=== PATIENT | female | born 1990 | race Hispanic/Latino ===

== ENCOUNTER → 2016-10-12 | Outpatient (CLI) | payer OTHER ==
[~2016-10-12] MED LIST: CEPH500C PO; CLON2TAB PO
--- NOTE | 2016-10-12 15:18 | Diagnostic Imaging Report ---
OB ultrasound. INDICATION: survey, followup for spine. FINDINGS: heart rate is 127 beats per minute. The placenta is posterior and extends to the lower uterine segments at 1.3 cm from the internal os. The cervix is long and closed. spine appears unremarkable. IMPRESSION: The spine appears unremarkable. Low-lying placenta. Followup ultrasound in 6-8 weeks is recommended to followup the placental position. Dictated by: Dictated on workstation # [id number]
== END ==
LOC: RAD 10:01
PROVIDERS: ATTEND Obstetrics & Gynecology
DX: Z36 Encounter for antenatal screening of mother (principal)
CPT/HCPCS: 76816

== ENCOUNTER → 2016-12-07 | Outpatient (CLI) | payer SELFPAY ==
--- NOTE | 2016-12-07 13:33 | Diagnostic Imaging Report ---
OB ultrasound. INDICATION: Followup placenta. FINDINGS: heart rate is 134 beats per minute. The placenta is posterior. On transabdominal views, the placenta appears to be closed to the lower uterine segment. This is clarified with careful transvaginal examination which demonstrated closed cervix of 5.2 CM in length. The head is seen within the internal os and no placental tissue is seen within 2 cm of the internal os. Amniotic fluid index is 9.1 CM. IMPRESSION: No placenta previa. Dictated by: Dictated on workstation # [id number]
== END ==
LOC: RAD 09:37
PROVIDERS: ATTEND Obstetrics & Gynecology
DX: O44.43 Low lying placenta NOS or without hemorrhage, third trimester (principal)
CPT/HCPCS: 76815

== ENCOUNTER 2017-01-21 01:36 | Outpatient (CLI) | payer OTHER ==
[~2017-01-21] VITALS: Ht 152.4 cm; Wt 65.9 kg
[2017-01-21 02:00] VITALS: BP 128/82
[2017-01-21 02:05] LABS: BILIRUBIN,URINE NEGATIVE (NEGATIVE); KETONES,URINE 1+ (NEGATIVE); LEUKOCYTE ESTERASE ,URINE NEGATIVE (NEGATIVE); NITRITE,URINE NEGATIVE (NEGATIVE); PH,URINE 6 (5-9); PROTEIN,URINE 1+ (NEGATIVE); UROBILINOGEN,URINE NORMAL (NORMAL)
[2017-01-21] MEDS ORDERED: PREN-37 PO (02:08)
--- NOTE | 2017-01-23 12:10 | Physician Query-Final Dx ---
ROEL MARIE 01/23/17 1210: Clinic Account Progress/Dx Physician Query: Please give diagnosis Date of Service Jan 21, 2017 at 01:36 ANKITA MURDOKC DO 01/23/17 1231: Clinic Account Progress/Dx DIAGNOSIS: Diagnosis 38 week IUP Decreased movement ROEL AMRIE Jan 23, 2017 12:10 ANKITA MURDOCK DO Jan 23, 2017 12:31
[2017-01-26] MEDS ORDERED: IBUP-1773 PO (07:38)
[2017-01-26] MEDS ORDERED: DOCU-143 PO (07:38)
== END 2017-01-21 02:45 | disposition home or self-care (01) ==
LOC: WSo 01:36 → LDRP 01:37 → WSo 02:45
PROVIDERS: ATTEND Obstetrics & Gynecology
DX: O36.8130 Decreased fetal movements, third trimester, not applicable or unspecified (principal); Z3A.38 38 weeks gestation of pregnancy
CPT/HCPCS: 81000; 99213

== ENCOUNTER 2017-01-26 03:51 | Inpatient (IN) | payer OTHER ==
[~2017-01-26] VITALS: Ht 152.4 cm; Wt 67.6 kg
[2017-01-26] VITALS (14 sets, daily range): BP systolic 100–169; BP diastolic 58–94
[~2017-01-26 03:51] MED LIST changes: +PREN-37 PO
[2017-01-26] MEDS ORDERED: D5 LR IV SOLUTION 1,000 ML IV ONE (04:24)
--- NOTE | 2017-01-26 04:43 | History & Physical-OB ---
OB - Chief Complaint & HPI Date/Time Date of Admission: Date of Admission: Time Seen by Provider: 06:45 Chief Complaint/History OB-Reason for Admission/Chief: Onset of Labor Hx : 3 Hx Para: 1 Expected Date of Delivery: Feb 02, 2017 Gestational Age in Weeks: 39 Gestational Age in Days: 0 Other reason for admission: 26 y/o @ 39w0d who presented at 0400 for contractions Was 3cm in clinic on my check yesterday No LOF, VB, fetus still active Does not want epidural Previously low lying placenta (resolved on f/u sono) otherwise unremarkable History of Labs O+ Antibody neg RI Hep B/C neg/neg HIV neg RPR NR GC/CT neg/neg GBS neg Allergies and Home Medications Allergies Coded Allergies: NKANo Known Allergies (Verified Allergy, Unknown, 10/25/08) Home Medications Vit/Iron Fumarate/FA 1 Each Tablet, 1 EACH PO DAILY, (Reported) OB - History Hx of Present Ultrasounds: Abnormal US findings (low lying placenta (resolved in third trim)) Obstetrical Complications: Other (UTI with neg ROSEANN) Medical Complications: None Information Induced Hypertension: No Maternal Gestational Diabetes: No Hemorrhage: No Obstetrical History Hx : 3 Hx Para: 1 Hx Total # of Abortions (Spona: 1 Hx Multiple Gestation: No Hx Stillbirth: No Hx Complication: No Hx Induced Hypertens: No Hx Maternal Gestational Diabet: No Delivery History Hx Blood Disorders: No Patient Past Medical History non-contributory Social History/Family History HIV/AIDS: No Alcohol Use: Denies Use Smoking Cessation: Never smoker Immunizations Tetanus Booster (TDap): Less than 5yrs Rubella: immune RPR/VDRL: Negative GBS Status: Negative HBsAG: Negative OB - Admission Exam Physical Exam Time Seen by Provider: 06:45 Vitals: per neurology technologist (pending at time of this note) HEENT: NCAT Heart: Rhythm Normal Lungs: Clear Abdomen: Gravid Extremities: Normal Reflexes: Normal Cervical Dilatation: 9cm Effacement: 100% Station: -1 Membranes: Intact Heart Rate: 130's Accelerations: Accelerations Present Decelerations: No Decelerations Short Term Variability: Present Fishing Rod Trimmer Variability: Average (6-25) Contractions on Admission: < 5 Minutes Apart OB - Assessment/Plan/Diagnosis Plan Other Plan 26 y/o @ 39w0d with active labor, GBS neg H/o low lying placenta this , resolved Rh+ RI Expectant management, will AROM for augmentation ASVD Peds SANDRINE Graham MD Jan 26, 2017 04:43
[2017-01-26] MEDS ORDERED: D5 LR IV SOLUTION 1,000 ML IV SCH (04:54)
[2017-01-26 05:00] LABS: BASOPHILS % (AUTO) 0 % (0-10); EOSINOPHILS # (AUTO) 0.6 10^3/uL (0.0-0.3); EOSINOPHILS % (AUTO) 5 % (0-10); LYMPHOCYTES # (AUTO) 2.2 X 10^3 (1.0-4.0); LYMPHOCYTES % (AUTO) 21 % (12-44); MEAN CORPUSCULAR HEMOGLOBIN 30 PG (25-34); MEAN CORPUSCULAR HGB CONC 35 G/DL (32-36); MEAN CORPUSCULAR VOLUME 87 FL (80-99); MEAN PLATELET VOLUME 12.7 FL (7.4-10.4); MONOCYTES # (AUTO) 0.6 X 10^3 (0.0-1.0); MONOCYTES % (AUTO) 5 % (0-12); NEUTROPHILS # (AUTO) 7.3 X 10^3 (1.8-7.8); NEUTROPHILS % (AUTO) 69 % (42-75); PLATELET COUNT 179 10^3/uL (130-400); RED BLOOD COUNT 4.61 10^6/uL (4.35-5.85); RED CELL DISTRIBUTION WIDTH 14.3 % (10.0-14.5); WHITE BLOOD COUNT 10.6 10^3/uL (4.3-11.0)
[2017-01-26] MEDS ORDERED: MINERAL OIL CONCENTRATE 99.9% 15 ML UDC TOP PRN (05:00)
[2017-01-26 05:02] LABS: BILIRUBIN,URINE NEGATIVE (NEGATIVE); KETONES,URINE NEGATIVE (NEGATIVE); LEUKOCYTE ESTERASE ,URINE 1+ (NEGATIVE); NITRITE,URINE NEGATIVE (NEGATIVE); PH,URINE 7 (5-9); PROTEIN,URINE NEGATIVE (NEGATIVE); UROBILINOGEN,URINE NORMAL (NORMAL)
[2017-01-26] MEDS ORDERED: CATHETER FLUSH 10 ML SYR IV SCH (06:00)
[2017-01-26] MEDS: fentaNYL INJECTION 100 MCG/2 ML AMP IVP ONE ×2 (06:48→07:09)
[2017-01-26] MEDS ORDERED: OXYTOCIN/NORMAL SALINE 1,000 ML IV ONE (06:51)
[2017-01-26] MEDS ORDERED: LIDOCAINE 1% INJ 20 ML (XYLOCAINE) VIAL ONE (07:09)
[2017-01-26] MEDS ORDERED: LIDOCAINE/EPI 1%-1:200,000 (XYLOCAINE) 30 ML VIAL ONE (07:11)
--- NOTE | 2017-01-26 07:36 | OB Labor & Delivery Record ---
Vag Delivery Note Vag Delivery Note Date of Delivery: 01/26/17 Preoperative Diagnosis: Rain Swenson is a 26 y/o @ 39w0d with active labor, GBS neg, history of low lying placenta (resolved on third trimester sono) Postoperative Diagnosis: Same Surgeon: Taya Diego MD Anesthesia: Lidocaine for repair Delivery Type: Spontaneous vaginal delivery Findings: Viable female , apgars pending, weight pending Lacerations: second degree perineal laceration (repaired) Intact placenta with 3 vessel cord. No nuchal cord, body cord or shoulder dystocia Estimated Blood Loss: 300 ml Complications: None Condition: Stable Description of Procedure: The patient is a 26 y/o who presented @ 39w0d with contractions, found to be in active labor. She was admitted and informed consent was obtained. Her labor course was remarkable for AROM with clear fluid at complete dilatation. She then began to push. She was then set up for delivery. The 's head was delivered atraumatically in the occiput anterior position. The shoulders and remainder of the 's body were then delivered without difficulty. Upon delivery, the head was held below the level of the perineum and the mouth and nares were bulb suctioned. The cord was doubly clamped and cut after a pause of 30-60 seconds and the infant was placed on her mother's chest. An intact placenta with 3- vessel cord delivered via Jonas and there was found to be minimal bleeding. Vigorous fundal massage was performed and the fundus was found to be firm. IV oxytocin was given. Examination of the vagina and perineum revealed a second degree perineal laceration repaired in the usual fashion with 3-0 vicryl suture following injection of lidocaine for analgesia. Following the repair, sponge, instrument and needle counts were correct. Mom and baby were both in stable condition in the labor suite. Vitals - Labs Vital Signs - I&O Vital Signs Date Time Temp Pulse Resp B/P (MAP) Pulse Ox O2 Delivery O2 Flow Rate FiO2 01/26/17 05:45 98.7 74 20 129/89 01/26/17 04:30 98.0 72 18 143/91 Labs Laboratory Tests 01/26/17 04:15: Urine Color YELLOW, Urine Clarity CLEAR, Urine pH 7, Urine Specific [place] 1.005L, Urine Protein NEGATIVE, Urine Glucose (UA) NEGATIVE, Urine Ketones NEGATIVE, Urine Nitrite NEGATIVE, Urine Bilirubin NEGATIVE, Urine Urobilinogen NORMAL, Urine Leukocyte Esterase 1+H, Urine RBC (Auto) 4+H, Urine RBC 2-5H, Urine WBC 2-5, Urine Squamous Epithelial Cells 2-5, Urine Crystals NONE, Urine Bacteria TRACE, Urine Casts NONE, Urine Mucus NEGATIVE, Urine Culture Indicated YES 01/26/17 04:35: White Blood Count 10.6, Red Blood Count 4.61, Hemoglobin 13.9, Hematocrit 40, Mean Corpuscular Volume 87, Mean Corpuscular Hemoglobin 30, Mean Corpuscular Hemoglobin Concent 35, Red Cell Distribution Width 14.3, Platelet Count 179, Mean Platelet Volume 12.7H, Neutrophils (%) (Auto) 69, Lymphocytes (%) (Auto) 21 , Monocytes (%) (Auto) 5, Eosinophils (%) (Auto) 5, Basophils (%) (Auto) 0, Neutrophils # (Auto) 7.3, Lymphocytes # (Auto) 2.2, Monocytes # (Auto) 0.6, Eosinophils # (Auto) 0.6H, Basophils # (Auto) 0.0 TAYA DIEGO MD Jan 26, 2017 07:36
[2017-01-26] MEDS ORDERED: DOCU-143 PO (07:38)
[2017-01-26] MEDS ORDERED: IBUP-1773 PO (07:38)
--- NOTE | 2017-01-26 07:38 | Discharge Inst-Women's Service ---
Discharge Inst-Women's Serv Depart Medication/Instructions New, Converted or Re-Newed RX: Transmitted to Pharmacy Final Diagnosis TIUP, active labor, Consults/Follow Up Additional Follow Up: Yes Orders/Referrals 6 weeks with Jennifer Hernandez APRN Activity Activity: Activity as Tolerated Driving Instructions: You May Drive NO SMOKING: NO SMOKING Nothing Inside Vagina: No Douching, No [place], No Tampons Diet Discharge Diet: No Restrictions Symptoms to Report to : Bleeding Excessive, Pain Increased, Fever Over 101 Degrees F, Pain/Pressure in Chest, Vaginal Bleeding Increase, Dizziness/Fainting , Nausea/Vomiting, Shortness of Breath For Any Problems or Questions: Contact Your Physician, Go to Emergency Room SANDRINE CARRILLO MD Jan 26, 2017 07:38
[2017-01-26] MEDS ORDERED: OXYTOCIN/NORMAL SALINE 500 ML IV SCH (07:46)
[2017-01-26] MEDS ORDERED: WITCH HAZEL(TUCKS) 40 EA JAR TOP PRN (08:00)
[2017-01-26] MEDS ORDERED: BENZOCAINE/MENTHOL (DERMOPLAST) 56 ML CAN TP PRN (08:00)
[2017-01-26] MEDS: IBUPROFEN 600 MG (MOTRIN) TAB PO SCH ×3 (08:01→20:18)
[2017-01-26] MEDS: CATHETER FLUSH 10 ML SYR IV SCH (20:18)
[2017-01-27] VITALS: BP 104/69
[2017-01-27] MEDS: IBUPROFEN 600 MG (MOTRIN) TAB PO SCH ×4 (02:00→20:06)
[2017-01-27 04:00] VITALS: BP 90/60
[2017-01-27] MEDS: CATHETER FLUSH 10 ML SYR IV SCH ×3 (06:21→22:08)
[2017-01-27 06:45] LABS: BASOPHILS % (AUTO) 0 % (0-10); EOSINOPHILS # (AUTO) 0.9 10^3/uL (0.0-0.3); EOSINOPHILS % (AUTO) 8 % (0-10); LYMPHOCYTES # (AUTO) 3.3 X 10^3 (1.0-4.0); LYMPHOCYTES % (AUTO) 31 % (12-44); MEAN CORPUSCULAR HEMOGLOBIN 30 PG (25-34); MEAN CORPUSCULAR HGB CONC 34 G/DL (32-36); MEAN CORPUSCULAR VOLUME 89 FL (80-99); MEAN PLATELET VOLUME 12.5 FL (7.4-10.4); MONOCYTES # (AUTO) 0.6 X 10^3 (0.0-1.0); MONOCYTES % (AUTO) 6 % (0-12); NEUTROPHILS # (AUTO) 5.7 X 10^3 (1.8-7.8); NEUTROPHILS % (AUTO) 55 % (42-75); PLATELET COUNT 164 10^3/uL (130-400); RED BLOOD COUNT 3.93 10^6/uL (4.35-5.85); RED CELL DISTRIBUTION WIDTH 14.6 % (10.0-14.5); WHITE BLOOD COUNT 10.4 10^3/uL (4.3-11.0)
[2017-01-27 07:59] VITALS: BP 100/64
--- NOTE | 2017-01-27 08:06 | Postpartum Progress Note ---
Note Note Day # 1 Subjective: Patient is without complaints. Ambulating, voiding. Tolerating a regular diet without nausea or vomiting. Normal lochia. Pain is well controlled with oral pain medications. Bottle feeding. Objective: VS - Last 72 Hours, by Label 01/26/17 01/26/17 01/26/17 01/26/17 04:30 05:45 06:15 06:45 Temp 98.0 98.7 Pulse 72 74 65 75 Resp 18 20 20 20 B/P (MAP) 143/91 129/89 138/91 169/94 01/26/17 01/26/17 01/26/17 01/26/17 07:25 07:38 08:08 08:23 Temp 100.1 100.0 Pulse 82 70 67 69 Resp 18 18 18 18 B/P (MAP) 123/65 121/70 133/74 135/79 O2 Delivery Room Air Room Air Room Air Room Air 01/26/17 01/26/17 01/26/17 01/26/17 08:38 08:53 09:08 11:39 Temp 99.1 97.9 Pulse 68 65 69 67 Resp 18 18 18 17 B/P (MAP) 122/58 106/62 106/61 102/66 Pulse Ox 98 O2 Delivery Room Air Room Air Room Air Room Air 01/26/17 01/26/17 01/27/17 01/27/17 15:21 20:00 00:00 04:00 Temp 99.0 98.7 97.8 98.0 Pulse 69 90 75 71 Resp 18 16 16 16 B/P (MAP) 100/61 106/68 104/69 90/60 Pulse Ox 98 98 98 99 O2 Delivery Room Air Room Air Room Air Room Air 01/27/17 07:59 Temp 98.2 Pulse 73 Resp 19 B/P (MAP) 100/64 Pulse Ox 98 O2 Delivery Room Air Physical Exam: General - Alert and oriented, no apparent distress Abdomen - Soft, appropriately tender to palpation, non-distended, fundus firm at umbilicus Extremities - no edema, negative Mark's bilaterally Laboratory Tests Test 01/27/17 06:15 Range/Units White Blood Count 10.4 4.3-11.0 10^3/uL Red Blood Count 3.93 L 4.35-5.85 10^6/uL Hemoglobin 11.8 11.5-16.0 G/DL Hematocrit 35 35-52 % Mean Corpuscular Volume 89 80-99 FL Mean Corpuscular Hemoglobin 30 25-34 PG Mean Corpuscular Hemoglobin Concent 34 32-36 G/DL Red Cell Distribution Width 14.6 H 10.0-14.5 % Platelet Count 164 130-400 10^3/uL Mean Platelet Volume 12.5 H 7.4-10.4 FL Neutrophils (%) (Auto) 55 42-75 % Lymphocytes (%) (Auto) 31 12-44 % Monocytes (%) (Auto) 6 0-12 % Eosinophils (%) (Auto) 8 0-10 % Basophils (%) (Auto) 0 0-10 % Neutrophils # (Auto) 5.7 1.8-7.8 X 10^3 Lymphocytes # (Auto) 3.3 1.0-4.0 X 10^3 Monocytes # (Auto) 0.6 0.0-1.0 X 10^3 Eosinophils # (Auto) 0.9 H 0.0-0.3 10^3/uL Basophils # (Auto) 0.0 0.0-0.1 10^3/uL Assessment: 26 y/o post- day # 1, status post spontaneous vaginal delivery. Recovering well, hemodynamically stable Plan: Routine care. Encourage ambulation. Plan for discharge today, f/u in 6 weeks Vitals - Labs Vital Signs - I&O Vital Signs Date Time Temp Pulse Resp B/P (MAP) Pulse Ox O2 Delivery O2 Flow Rate FiO2 01/27/17 07:59 98.2 73 19 100/64 98 Room Air 01/27/17 04:00 98.0 71 16 90/60 99 Room Air 01/27/17 00:00 97.8 75 16 104/69 98 Room Air 01/26/17 20:00 98.7 90 16 106/68 98 Room Air 01/26/17 15:21 99.0 69 18 100/61 98 Room Air 01/26/17 11:39 97.9 67 17 102/66 98 Room Air 01/26/17 09:08 99.1 69 18 106/61 Room Air 01/26/17 08:53 65 18 106/62 Room Air 01/26/17 08:38 68 18 122/58 Room Air 01/26/17 08:23 69 18 135/79 Room Air 01/26/17 08:08 67 18 133/74 Room Air I & O 01/27/17 07:00 Intake Total 350 ml Balance 350 ml Labs Laboratory Tests 01/27/17 06:15: White Blood Count 10.4, Red Blood Count 3.93L, Hemoglobin 11.8, Hematocrit 35, Mean Corpuscular Volume 89, Mean Corpuscular Hemoglobin 30, Mean Corpuscular Hemoglobin Concent 34, Red Cell Distribution Width 14.6H, Platelet Count 164, Mean Platelet Volume 12.5H, Neutrophils (%) (Auto) 55, Lymphocytes (%) (Auto) 31 , Monocytes (%) (Auto) 6, Eosinophils (%) (Auto) 8, Basophils (%) (Auto) 0, Neutrophils # (Auto) 5.7, Lymphocytes # (Auto) 3.3, Monocytes # (Auto) 0.6, Eosinophils # (Auto) 0.9H, Basophils # (Auto) 0.0 Microbiology 01/26/17 Urine Culture - Preliminary, Resulted SANDRINE CARRILLO MD Jan 27, 2017 08:06
[2017-01-27] MEDS: PRENATAL VITAMIN 1 EA TAB PO SCH (08:07)
[2017-01-27 12:00] VITALS: BP 112/79
[2017-01-27 16:40] VITALS: BP 99/60
[2017-01-27 20:32] VITALS: BP 99/65
[2017-01-28] MEDS: IBUPROFEN 600 MG (MOTRIN) TAB PO SCH ×2 (01:41→08:46)
[2017-01-28 02:24] VITALS: BP 88/52
[2017-01-28] MEDS: PRENATAL VITAMIN 1 EA TAB PO SCH (06:02)
[2017-01-28] MEDS: CATHETER FLUSH 10 ML SYR IV SCH (06:03)
[2017-01-28 08:00] VITALS: BP 99/68
--- NOTE | 2017-01-28 09:03 | Postpartum Progress Note ---
Note Note Day # 2 Subjective: Patient is without complaints. Ambulating, voiding. Tolerating a regular diet without nausea or vomiting. Normal lochia. Pain is well controlled with oral pain medications. Breast and bottle feeding. Objective: VS - Last 72 Hours, by Label 01/26/17 01/26/17 01/26/17 01/26/17 04:30 05:45 06:15 06:45 Temp 98.0 98.7 Pulse 72 74 65 75 Resp 18 20 20 20 B/P (MAP) 143/91 129/89 138/91 169/94 01/26/17 01/26/17 01/26/17 01/26/17 07:25 07:38 08:08 08:23 Temp 100.1 100.0 Pulse 82 70 67 69 Resp 18 18 18 18 B/P (MAP) 123/65 121/70 133/74 135/79 O2 Delivery Room Air Room Air Room Air Room Air 01/26/17 01/26/17 01/26/17 01/26/17 08:38 08:53 09:08 11:39 Temp 99.1 97.9 Pulse 68 65 69 67 Resp 18 18 17 B/P (MAP) 122/58 106/62 106/61 102/66 Pulse Ox 98 O2 Delivery Room Air Room Air Room Air Room Air 01/26/17 01/26/17 01/27/17 01/27/17 15:21 20:00 00:00 04:00 Temp 99.0 98.7 97.8 98.0 Pulse 69 90 75 71 Resp 18 16 16 16 B/P (MAP) 100/61 106/68 104/69 90/60 Pulse Ox 98 98 98 99 O2 Delivery Room Air Room Air Room Air Room Air 01/27/17 01/27/17 01/27/17 01/27/17 07:59 12:00 16:40 20:32 Temp 98.2 97.8 97.5 99.1 Pulse 73 70 64 84 Resp 19 12 16 20 B/P (MAP) 100/64 112/79 99/60 99/65 Pulse Ox 98 100 100 99 O2 Delivery Room Air Room Air Room Air Room Air 01/28/17 01/28/17 02:24 08:00 Temp 97.0 96.7 Pulse 63 73 Resp 20 22 B/P (MAP) 88/52 99/68 Pulse Ox 99 O2 Delivery Room Air Room Air Physical Exam: General - Alert and oriented, no apparent distress Abdomen - Soft, appropriately tender to palpation, non-distended, fundus firm at umbilicus Extremities - no edema, negative Mark's bilaterally no new labs Assessment: 26 y/o post- day # 2, status post spontaneous vaginal delivery. Recovering well, hemodynamically stable Plan: Routine care. Encourage ambulation. Plan for discharge today, f/u in 6 weeks Vitals - Labs Vital Signs - I&O Vital Signs Date Time Temp Pulse Resp B/P (MAP) Pulse Ox O2 Delivery O2 Flow Rate FiO2 01/28/17 08:00 96.7 73 22 99/68 Room Air 01/28/17 02:24 97.0 63 20 88/52 99 Room Air 01/27/17 20:32 99.1 84 20 99/65 99 Room Air 01/27/17 16:40 97.5 64 16 99/60 100 Room Air 01/27/17 12:00 97.8 70 12 112/79 100 Room Air Labs Microbiology 01/26/17 Urine Culture - Preliminary, Resulted SANDRINE CARRILLO MD Jan 28, 2017 09:03
[2017-01-28 13:35] VITALS: BP 99/68
== END 2017-01-28 13:35 | disposition home or self-care (01) | DRG 775 ==
LOC: WSo 03:51 → LDRP 03:52 → WSo 04:39 → LDRP 04:40
PROVIDERS: ADMIT Obstetrics & Gynecology; ATTEND Obstetrics & Gynecology
PROC: 0KQM0ZZ Repair Perineum Muscle, Open Approach (ICD-10-PCS; principal; 2017-01-26)
PROC: 10E0XZZ Delivery of Products of Conception, External Approach (ICD-10-PCS; 2017-01-26)
DX: O70.1 Second degree perineal laceration during delivery (principal); Z3A.39 39 weeks gestation of pregnancy; Z37.0 Single live birth
CPT/HCPCS: 36415; 81000; 85025; 86850; 86900; 86901; 87088; 99212

== ENCOUNTER → 2021-02-08 | Outpatient (CLI) | payer SELFPAY ==
[~2021-02-08] MED LIST changes: +DOCU-143 PO; +IBUP-1773 PO
== END ==
LOC: CARD 15:00
PROVIDERS: ATTEND Internal Medicine Cardiovascular Disease
DX: I34.0 Nonrheumatic mitral (valve) insufficiency (principal)
CPT/HCPCS: 93306